=== PATIENT | female | born 1990 | race Caucasian/White ===

== ENCOUNTER 2020-11-21 07:27 | Outpatient (REF) | payer OTHER, SELFPAY | END 2020-11-21 07:28 | disposition home or self-care (01) | LOC: HO.LAB 07:27 | PROVIDERS: Visit Provider Internal Medicine | DX: Z20.822 Contact with and (suspected) exposure to COVID-19 (principal) | CPT/HCPCS: 36415; C9803; U0003 ==

== ENCOUNTER 2020-12-08 07:29 | Outpatient (REF) | payer OTHER, SELFPAY | END 2020-12-08 07:30 | disposition home or self-care (01) | LOC: HO.LAB 07:29 | PROVIDERS: Visit Provider Internal Medicine | DX: Z20.822 Contact with and (suspected) exposure to COVID-19 (principal) | CPT/HCPCS: 36415; C9803; U0003 ==

== ENCOUNTER 2023-11-06 11:12 | Emergency (ER) | payer OTHER, SELFPAY ==
[2023-11-06 11:17] VITALS: BP 176/99; PULSE 87; RESP 18; TEMP 36.3; O2SAT 98; BMI 36.8
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
[2023-11-06 12:31] LABS: Influenza A PCR NEGATIVE (Negative); Influenza B PCR NEGATIVE (Negative); Resp Syncy Virus RNA Qual PCR NEGATIVE (Negative); SARS COV2 PCR INHOUSE NEGATIVE (Negative)
== END 2023-11-06 11:26 | disposition home or self-care (01) ==
PROVIDERS: Physician Assistant; Emergency Provider Emergency Medicine; PCP Internal Medicine
DX: H10.023 Other mucopurulent conjunctivitis, bilateral (principal); B34.9 Viral infection, unspecified; Z20.822 Contact with and (suspected) exposure to COVID-19; Z20.828 Contact with and (suspected) exposure to other viral communicable diseases
CPT/HCPCS: 0241U; 99282; 99283

== ENCOUNTER 2024-05-02 07:21 | Outpatient (AMB) | payer OTHER, SELFPAY ==
[2024-05-02 07:34] VITALS: BP 132/86; BMI 35.5
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
== END 2024-05-02 07:58 | disposition home or self-care (01) ==
PROVIDERS: PCP Internal Medicine; Visit Provider Internal Medicine
DX: Z00.00 Encounter for general adult medical examination without abnormal findings (principal); G43.009 Migraine without aura, not intractable, without status migrainosus; E66.9 Obesity, unspecified; Z68.35 Body mass index [BMI] 35.0-35.9, adult
CPT/HCPCS: 99213; 99395

== ENCOUNTER 2024-05-27 09:26 | Outpatient (REF) | payer OTHER, SELFPAY ==
[2024-05-27 11:53] LABS: MANUAL DIFF FLAG NO
[2024-05-27 11:57] LABS: Basophils Percent Auto 0.5 % (0-2); Eosinophils Absolute Auto 0.1 X10*3/uL (0.0-0.4); Eosinophils Percent Auto 0.7 % (0-4); Hematocrit 37.5 % (37.0-47.0); Hemoglobin 13.4 g/dl (12.0-16.0); Imm Gran Abs Auto 0.04 X10*3/uL (0.00-0.03); Imm Gran Pct Auto 0.5 % (0.0-0.4); Lymphocytes Absolute Auto 3.2 X10*3/uL (1.2-4.9); Lymphocytes Percent Auto 35.8 % (20-40); Mean Corpuscular HGB Conc 35.7 g/dl (31.0-35.0); Mean Corpuscular Hemoglobin 31.5 pg (27.0-33.0); Mean Platelet Volume 9.9 fL (9.4-12.3); Monocytes Absolute Auto 0.4 X10*3/uL (0.1-1.2); Monocytes Percent Auto 4.2 % (2-11); Neutrophils Absolute Auto 5.1 x10*3/uL (2.0-8.3); Neutrophils Percent Auto 58.3 % (45-73); Platelet Count 274 X10*3/uL (160-400); Red Blood Count 4.26 X10*6/uL (4.20-5.50); Red Cell Distribution Width 12.4 % (11.0-16.0); White Blood Count 8.8 X10*3/uL (4.8-10.8)
[2024-05-27 12:16] LABS: Rheumatoid Factor < 13.0 IU/mL (<15.0)
[2024-05-27 12:17] LABS: Estimated Average Glucose 117 mg/dL; Hemoglobin A1c % 5.7 % (<6.0)
[2024-05-27 12:20] LABS: Alanine Aminotransferase 29 U/L (0-31); Albumin Level 4.2 g/dL (3.5-5.0); Alkaline Phosphatase 76 U/L (39-117); Anion Gap 12 (12-20); Aspartate Amino Transferase 15 U/L (5-31); Bilirubin Total 0.7 mg/dL (0.0-1.0); Blood Urea Nitrogen 11 mg/dL (9-16); Calcium 9.1 mg/dL (8.4-10.2); Carbon Dioxide 23 mmol/L (22-29); Chloride 109 mmol/L (96-108); Cholesterol 163 mg/dL (<200); Estimated Glomerular Filt Rate > 60; Glucose Fasting 140 mg/dL (60-99); HDL Cholesterol 41 mg/dL (>40); Iron 86 mcg/dL (30-160); LDL Cholesterol Calculated 101 mg/dL (<100); Percent Iron Saturation 28 % (15-50); Potassium 3.7 mmol/L (3.3-5.1); Sodium 140 mmol/L (135-145); Total Iron Binding Capacity 306 mcg/dL (228-428); Triglycerides 106 mg/dL (<150); Unsaturated Iron Binding 220 ug/dL
[2024-05-27 12:34] LABS: Ferritin 73 ng/mL (10-122); Thyroid Stimulating Hormone 1.83 uIU/mL (0.32-4.0)
[2024-05-27 12:48] LABS: Vitamin B12 312 pg/mL (200-900)
[2024-05-28 17:09] LABS: Homocysteine 6.2 umol/L (<10.4)
[2024-05-30 16:08] LABS: Methylmalonic Acid 92 nmol/L (55-335)
[2024-05-31 18:48] LABS: Vitamin D 25-OH, D2 <4 ng/mL; Vitamin D 25-OH, D3 16 ng/mL; Vitamin D 25-OH, Total 16 ng/mL (30-100)
[2024-06-05 06:39] LABS: Anti Nuclear Antibody Screen NEGATIVE (NEGATIVE)
== END 2024-05-27 09:27 | disposition home or self-care (01) ==
LOC: HO.LAB 09:26
PROVIDERS: Absent Provider Internal Medicine; PCP Internal Medicine; Visit Provider Nurse Practitioner Family
DX: Z23 Encounter for immunization (principal); G43.109 Migraine with aura, not intractable, without status migrainosus; D64.9 Anemia, unspecified; R53.83 Other fatigue; M25.50 Pain in unspecified joint; L65.9 Nonscarring hair loss, unspecified; E66.9 Obesity, unspecified; R20.2 Paresthesia of skin; G47.19 Other hypersomnia; R06.83 Snoring; G47.9 Sleep disorder, unspecified
CPT/HCPCS: 36415; 80053; 80061; 82306; 82607; 82728; 82746; 83036; 83090; 83540; 83921; 84443; 85025; 86038; 86431; 86787; 99202

== ENCOUNTER 2024-05-27 09:26 | Outpatient (AMB) | payer OTHER, SELFPAY ==
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
[2024-05-27 09:29] VITALS: BP 160/100; PULSE 72; O2SAT 99; BMI 36.1
== END 2024-05-27 11:12 | disposition home or self-care (01) ==
PROVIDERS: PCP Internal Medicine; Visit Provider Nurse Practitioner Family
DX: R51.9 Headache, unspecified (principal); R20.2 Paresthesia of skin; G47.19 Other hypersomnia; R06.83 Snoring; G47.9 Sleep disorder, unspecified; G43.109 Migraine with aura, not intractable, without status migrainosus
CPT/HCPCS: 99204

== ENCOUNTER → 2024-06-20 15:53 | Outpatient (REF) | payer OTHER, SELFPAY | LOC: HO.SL 15:53 | PROVIDERS: PCP Internal Medicine; Visit Provider Nurse Practitioner Family | DX: G47.33 Obstructive sleep apnea (adult) (pediatric) (principal); G47.19 Other hypersomnia; R06.83 Snoring | CPT/HCPCS: 95806 ==

== ENCOUNTER 2024-06-25 14:32 | Outpatient (AMB) | payer OTHER, SELFPAY ==
[2024-06-25 15:07] VITALS: BP 138/84
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
== END 2024-06-25 16:13 | disposition home or self-care (01) ==
LOC: HO.HWSM 14:32
PROVIDERS: PCP Internal Medicine; Visit Provider Advanced Practice Midwife
DX: Z01.419 Encounter for gynecological examination (general) (routine) without abnormal findings (principal); Z12.4 Encounter for screening for malignant neoplasm of cervix; B37.2 Candidiasis of skin and nail; Z87.42 Personal history of other diseases of the female genital tract; E66.9 Obesity, unspecified; G43.009 Migraine without aura, not intractable, without status migrainosus; N64.4 Mastodynia
CPT/HCPCS: 99385

== ENCOUNTER 2024-06-25 14:32 | Outpatient (REF) | payer OTHER, SELFPAY ==
[2024-06-26 11:37] LABS: CT PCR NOT DETECTED (Not Detect.); NG PCR NOT DETECTED (Not Detect.)
[2024-06-26 11:41] LABS: Bacterial Vaginosis PCR POSITIVE (Negative); Candida Group PCR NOT DETECTED (Not Detect); Candida glab krusei PCR NOT DETECTED (Not Detect); Trichomonas vaginalis PCR NOT DETECTED (Not Detect)
[2024-06-27 15:43] LABS: HPV mRNA E6/E7 Not Detected (Not Detected)
== END 2024-06-25 14:33 | disposition home or self-care (01) ==
LOC: HO.LAB 14:32
PROVIDERS: PCP Internal Medicine; Visit Provider Advanced Practice Midwife
DX: Z00.00 Encounter for general adult medical examination without abnormal findings (principal); N89.8 Other specified noninflammatory disorders of vagina; Z20.2 Contact with and (suspected) exposure to infections with a predominantly sexual mode of transmission; Z01.419 Encounter for gynecological examination (general) (routine) without abnormal findings; Z12.4 Encounter for screening for malignant neoplasm of cervix; B37.2 Candidiasis of skin and nail; Z87.42 Personal history of other diseases of the female genital tract; E66.9 Obesity, unspecified; G43.009 Migraine without aura, not intractable, without status migrainosus; N64.4 Mastodynia
CPT/HCPCS: 0352U; 36415; 87491; 87591; 87624; 88175; 99385

== ENCOUNTER 2024-07-25 14:58 | Outpatient (REF) | payer OTHER, SELFPAY ==
--- NOTE | ~2024-07-25 | MR_ITS ---
EXAMINATION: MR BRAIN WITHOUT AND WITH CONTRAST CLINICAL INFORMATION: Headache COMPARISON: None TECHNIQUE: Multiplanar multisequence MR imaging of the brain was obtained without and following the administration of 8 mL Gadavist intravenous contrast. FINDINGS: There is no acute infarct on diffusion-weighted imaging. There is no intracranial hemorrhage on iron-sensitive imaging. No extra-axial collection or mass effect/herniation. Normal parenchymal signal characteristics. No hydrocephalus. The ventricles are normal in morphology and size. No abnormal parenchymal or extra-axial enhancement. The major flow voids at the skull base are preserved. The midline structures are normal. The cerebellar tonsils are normally positioned. The craniocervical junction is normal. Marrow signal is within normal limits. The visualized soft tissues are without significant abnormality. Left posterior ethmoid and sphenoid sinus mucosal thickening. Leftward deviation of the nasal septum. MR/MR head/brain wo/w con IMPRESSION: 1. Unremarkable contrast enhanced MRI of the brain. 2. Left posterior ethmoid and sphenoid the sinus mucosal thickening. Electronically signed by: Florentin Sawyer MD 08/07/2024 03:57 PM EDT
[2024-07-25] MEDS: gadobutroL 10 ML VIAL IVPUSH (15:26)
== END 2024-07-25 14:59 | disposition home or self-care (01) ==
LOC: HO.MRI 14:58
PROVIDERS: PCP Internal Medicine; Visit Provider Nurse Practitioner Family
DX: R51.9 Headache, unspecified (principal); R20.2 Paresthesia of skin
CPT/HCPCS: 70553; A9585

== ENCOUNTER 2024-08-12 12:40 | Outpatient (REF) | payer OTHER, SELFPAY ==
--- NOTE | ~2024-08-12 | US_ITS ---
EXAMINATION: MM DIAGNOSTIC DIGITAL BREAST TOMOSYNTHESIS, BILATERAL US BREAST LIMITED, LEFT MAMMOGRAPHY: CLINICAL INFORMATION: Patient complaining of left upper outer quadrant breast pain. No palpable abnormality. No prior surgeries. COMPARISON: Mammography: Baseline exam. TECHNIQUE: Digital breast tomosynthesis is performed in both the craniocaudal and mediolateral oblique views along with computer-aided detection (CAD). Synthesized 2D images are generated from the tomosynthesis. In addition, an exaggerated laterally LEFT 3-D CC view was obtained, as well as spot compression 3-D RIGHT CC and MLO views. FINDINGS: There are scattered areas of fibroglandular density (ACR BI-RADS breast composition Category b). Area of left breast pain was marked by the technologist with the aid of the patient. There are no suspicious masses, suspicious grouped calcifications, or areas of architectural distortion in either breast. The parenchymal pattern is stable from prior exams. There is no skin or axillary abnormality. No mammographic correlate to the area of the left breast pain. This region will be evaluated with ultrasound. ULTRASOUND: CLINICAL INFORMATION: As above. COMPARISON: Baseline exam. TECHNIQUE: Targeted sonographic evaluation left breast was performed using a high frequency linear transducer. Attention to the upper outer quadrant was given, in the region of reported breast pain. Selected archived documentation. FINDINGS: LEFT BREAST: There is a mixture of fatty and fibroglandular tissue. No suspicious mass is seen. There is no pathologic acoustic shadowing. There is no cystic abnormality. There is no sonographic correlate to the region of pain upper outer left breast. US/US breast LT limited mamm only IMPRESSION: There are no findings suspicious for malignancy in either breast. Area of pain left breast upper outer quadrant shows no mammographic or sonographic correlation. Recommend clinical management. Otherwise, recommend the patient begin annual screening at age 40. OVERALL ASSESSMENT: Mammography: BI-RADS 1 - Negative Ultrasound: BI-RADS 1 - Negative RECOMMENDATION: Mammo at 40 or earlier if clinically needed This patient's information was entered into a reminder system with a target due date for their next mammogram. Electronically signed by: Froylan Yancey MD 08/12/2024 02:55 PM EDT
== END 2024-08-12 12:41 | disposition home or self-care (01) ==
LOC: HO.MAMMO 12:40
PROVIDERS: PCP Internal Medicine; Visit Provider Advanced Practice Midwife
DX: N64.4 Mastodynia (principal)
CPT/HCPCS: 76642; 77062; 77066

== ENCOUNTER → 2024-08-12 13:00 | Outpatient (BNV) | payer OTHER, SELFPAY | PROVIDERS: PCP Internal Medicine; Visit Provider Radiology Diagnostic Radiology | DX: N64.4 Mastodynia (principal) | CPT/HCPCS: 76642; 77062; 77066 ==

== ENCOUNTER 2024-08-22 09:32 | Outpatient (REF) | payer OTHER, SELFPAY ==
[2024-08-22 10:31] LABS: Influenza A PCR NEGATIVE (Negative); Influenza B PCR NEGATIVE (Negative); Resp Syncy Virus RNA Qual PCR NEGATIVE (Negative); SARS COV2 PCR INHOUSE NEGATIVE (Negative)
== END 2024-08-22 09:33 | disposition home or self-care (01) ==
LOC: HO.LAB 09:32
PROVIDERS: PCP Internal Medicine; Visit Provider Internal Medicine
DX: R09.89 Other specified symptoms and signs involving the circulatory and respiratory systems (principal)
CPT/HCPCS: 0241U

== ENCOUNTER 2024-09-25 09:21 | Outpatient (REF) | payer OTHER, SELFPAY ==
[2024-09-27 02:43] LABS: Rubella IgG Antibody 2.97 Index; Rubeola IgG (Measles) <13.50 AU/mL
== END 2024-09-25 09:22 | disposition home or self-care (01) ==
LOC: HO.LAB 09:21
PROVIDERS: PCP Internal Medicine; Visit Provider Internal Medicine
DX: Z23 Encounter for immunization (principal)
CPT/HCPCS: 36415; 86735; 86762; 86765

== ENCOUNTER 2024-10-01 08:35 | Outpatient (AMB) | payer OTHER, SELFPAY ==
--- NOTE | 2024-10-01 09:05 | AM.OFFVISNUR ---
Intake Visit Reasons: MMR shot Allergies acetaminophen [From PERCOCET] Allergy (Intermediate, Verified 06/25/24 15:08) HIVES oxycodone [From PERCOCET] Allergy (Intermediate, Verified 06/25/24 15:08) HIVES Assessment & Plan Assessment & Plan Orders: Orders MMR Immunization Today Z23 - Encounter for immunization Medications: New M-M-R II (PF) (measles,mumps,rubella vacc(PF)) 0.5 mL subcut ONCE 1 ea 0RF NS Z23 - Encounter for immunization
== END 2024-10-01 09:09 | disposition home or self-care (01) ==
PROVIDERS: PCP Internal Medicine; Visit Provider Internal Medicine
DX: Z23 Encounter for immunization (principal)

== ENCOUNTER → 2024-10-01 08:35 | Outpatient (BNVA) | payer OTHER, SELFPAY | PROVIDERS: PCP Internal Medicine; Visit Provider Internal Medicine | DX: Z23 Encounter for immunization (principal) | CPT/HCPCS: 90471; 90707 ==